=== PATIENT | female | born 1980 | race Caucasian/White ===

== ENCOUNTER → 2024-07-01 08:46 | Outpatient (REF) | payer BC, SELFPAY | LOC: HWRAD 08:46 | PROVIDERS: ATTENDING PHYSICIAN Internal Medicine | DX: I82.402 Acute embolism and thrombosis of unspecified deep veins of left lower extremity (principal); M25.562 Pain in left knee; M79.672 Pain in left foot | CPT/HCPCS: 73564; 73620; 93971 ==

== ENCOUNTER → 2024-07-31 12:56 | Outpatient (REF) | payer BC, SELFPAY | LOC: RAD 12:56 | PROVIDERS: ATTENDING PHYSICIAN Surgery Vascular Surgery; FAMILY PHYSICIAN Internal Medicine | DX: I82.512 Chronic embolism and thrombosis of left femoral vein (principal); I87.1 Compression of vein | CPT/HCPCS: 74174; Q9967 ==

== ENCOUNTER → 2024-10-28 10:27 | Outpatient (REF) | payer BC, SELFPAY | LOC: HWRAD 10:27 | PROVIDERS: ATTENDING PHYSICIAN Surgery Vascular Surgery; FAMILY PHYSICIAN Internal Medicine | DX: I82.429 Acute embolism and thrombosis of unspecified iliac vein (principal); I87.009 Postthrombotic syndrome without complications of unspecified extremity | CPT/HCPCS: 93970 ==